=== PATIENT | male | born 2000 | race Caucasian/White ===

== ENCOUNTER 2018-12-12 00:47 | Inpatient (IN) | payer OTHER ==
[2018-12-12] VITALS (24 sets, daily range): BP systolic 90–152; BP diastolic 42–85
[~2018-12-12] VITALS: Ht 188 cm; Wt 85.5 kg
[2018-12-12] MEDS ORDERED: NS IV 1000 ML 1,000 ML IV STA (00:52)
[2018-12-12] MEDS ORDERED: ONDANSETRON 4 MG/2 ML (SDV) Z0FRAN IVP ONE (01:00)
[2018-12-12 01:01] LABS: BASOPHILS # (AUTO) 0.1 10^3/uL (0.0-0.1); BASOPHILS % (AUTO) 1 % (0-10); EOSINOPHILS # (AUTO) 0.1 10^3/uL (0.0-0.3); EOSINOPHILS % (AUTO) 1 % (0-10); HEMATOCRIT 44 % (40-54); HEMOGLOBIN 15.6 G/DL (13.3-17.7); LYMPHOCYTES # (AUTO) 3.6 X 10^3 (1.0-4.0); LYMPHOCYTES % (AUTO) 34 % (12-44); MEAN CORPUSCULAR HEMOGLOBIN 32 PG (25-34); MEAN CORPUSCULAR HGB CONC 36 G/DL (32-36); MEAN CORPUSCULAR VOLUME 90 FL (80-99); MEAN PLATELET VOLUME 9.8 FL (7.4-10.4); MONOCYTES # (AUTO) 0.7 X 10^3 (0.0-1.0); MONOCYTES % (AUTO) 6 % (0-12); NEUTROPHILS # (AUTO) 6.1 X 10^3 (1.8-7.8); NEUTROPHILS % (AUTO) 58 % (42-75); PLATELET COUNT 240 10^3/uL (130-400); RED BLOOD COUNT 4.84 10^6/uL (4.35-5.85); WHITE BLOOD COUNT 10.6 10^3/uL (4.3-11.0)
--- NOTE | 2018-12-12 01:12 | ED Psychosocial ---
General Chief Complaint: Substance Abuse Stated Complaint: ETOH Source: patient Exam Limitations: clinical condition, intoxication History of Present Illness Date Seen by Provider: Dec 12, 2018 Time Seen by Provider: 00:52 Initial Comments Here with friends who report that he drank approximately 2 L of vodka and rum trying to impress girl. At approximately 1145 p.m., patient started vomiting significantly and passed out. Friends tried to manage him for a little while and he get worse causing them to bring him to the emergency department. Here he is unresponsive and intermittently vomiting. He is not answering any questions. He does move all 4 extremities. He has abrasions to the left side of his face and small abrasion and bruising to the left ribs. No other significant injuries noted. Timing/Duration: this evening Severity: severe Associated Symptoms: ingestion Allergies and Home Medications Allergies Coded Allergies: No Allergy Information Available (Unverified , 12/12/18) Patient Home Medication List Home Medication List Reviewed: No Review of Systems Constitutional: no symptoms reported Unable to complete review of systems due to altered mental status Past Jevivkj-Mhdwdl-Pyjofe Hx Patient Social History Alcohol Use: Occasionally Uses Recent Foreign Travel: No Contact w/Someone Who Travel: No Past Medical History Unable to determine past medical, surgical and social history due to altered mental status and severe intoxication Physical Exam Capillary Refill : Height, Weight, BMI Height: '" Weight: lbs. oz. kg; BMI Method: General Appearance: WD/WN, mild distress HEENT: PERRL/EOMI, TMs normal, pharynx normal Neck: full range of motion, supple, normal inspection Respiratory: lungs clear, normal breath sounds Cardiovascular: regular rate, rhythm, no murmur Gastrointestinal: non tender, soft Extremities: normal range of motion, normal inspection Neurologic/Psychiatric: disoriented x 3, other (responsive to painful stimuli. Does not answer questions and does not follow commands) Appearance/Memory: disheveled, other (vomit on close) Behavior/Eye Contact: other (unresponsive) Skin: normal color, cool, other (abrasions to the left cheek and forehead. Small abrasion to the left upper lateral chest wall with bruising) Procedures/Interventions Date of ETT Placement: Dec 12, 2018 Time of ETT Placement: 01:34 Intubation Method: orotracheal Tube Size: 8 Medications: Etomidate, Fentanyl, Succinylcholine, Versed Positive End Tide CO2: Yes Breath Sounds after Intubation: bilateral-equal Intubation Complications: no complications Post Intubation Xray: Yes Progress/Results/Core Measures Results/Orders Lab Results Laboratory Tests Test 12/12/18 00:50 12/12/18 01:00 Range/Units White Blood Count 10.6 4.3-11.0 10^3/uL Red Blood Count 4.84 4.35-5.85 10^6/uL Hemoglobin 15.6 13.3-17.7 G/DL Hematocrit 44 40-54 % Mean Corpuscular Volume 90 80-99 FL Mean Corpuscular Hemoglobin 32 25-34 PG Mean Corpuscular Hemoglobin Concent 36 32-36 G/DL Red Cell Distribution Width 12.0 10.0-14.5 % Platelet Count 240 130-400 10^3/uL Mean Platelet Volume 9.8 7.4-10.4 FL Neutrophils (%) (Auto) 58 42-75 % Lymphocytes (%) (Auto) 34 12-44 % Monocytes (%) (Auto) 6 0-12 % Eosinophils (%) (Auto) 1 0-10 % Basophils (%) (Auto) 1 0-10 % Neutrophils # (Auto) 6.1 1.8-7.8 X 10^3 Lymphocytes # (Auto) 3.6 1.0-4.0 X 10^3 Monocytes # (Auto) 0.7 0.0-1.0 X 10^3 Eosinophils # (Auto) 0.1 0.0-0.3 10^3/uL Basophils # (Auto) 0.1 0.0-0.1 10^3/uL Sodium Level 141 135-145 MMOL/L Potassium Level 3.5 L 3.6-5.0 MMOL/L Chloride Level 109 H 98-107 MMOL/L Carbon Dioxide Level 20 L 21-32 MMOL/L Anion Gap 12 5-14 MMOL/L Blood Urea Nitrogen 12 7-18 MG/DL Creatinine 0.85 0.60-1.30 MG/DL Estimat Glomerular Filtration Rate > 60 BUN/Creatinine Ratio 14 Glucose Level 121 H 70-105 MG/DL Calcium Level 8.8 8.5-10.1 MG/DL Corrected Calcium 8.5-10.1 MG/DL Magnesium Level 2.7 H 1.8-2.4 MG/DL Total Bilirubin 0.5 0.1-1.0 MG/DL Aspartate Amino Transf (AST/SGOT) 20 5-34 U/L Alanine Aminotransferase (ALT/SGPT) 16 0-55 U/L Alkaline Phosphatase 89 40-136 U/L Total Protein 7.6 6.4-8.2 GM/DL Albumin 4.7 H 3.2-4.5 GM/DL Salicylates Level < 5.0 L 5.0-20.0 MG/DL Acetaminophen Level < 10 L 10-30 UG/ML Serum Alcohol 343 *H <10 MG/DL Urine Opiates Screen NEGATIVE NEGATIVE Urine Oxycodone Screen NEGATIVE NEGATIVE Urine Methadone Screen NEGATIVE NEGATIVE Urine Propoxyphene Screen NEGATIVE NEGATIVE Urine Barbiturates Screen NEGATIVE NEGATIVE Ur Tricyclic Antidepressants Screen NEGATIVE NEGATIVE Urine Phencyclidine Screen NEGATIVE NEGATIVE Urine Amphetamines Screen NEGATIVE NEGATIVE Urine Methamphetamines Screen NEGATIVE NEGATIVE Urine Benzodiazepines Screen NEGATIVE NEGATIVE Urine Cocaine Screen NEGATIVE NEGATIVE Urine Cannabinoids Screen NEGATIVE NEGATIVE My Orders Orders - GRETCHEN URBINA MD Acetaminophen (12/12/18 00:52) Alcohol (12/12/18 00:52) Cbc With Automated Diff (12/12/18 00:52) Comprehensive Metabolic Panel (12/12/18 00:52) Drug Screen Stat (Urine) (12/12/18 00:52) Magnesium (12/12/18 00:52) Salicylate (12/12/18 00:52) Ct Head Wo (12/12/18 00:52) Ondansetron Injection (Zofran Injectio (12/12/18 01:00) Ns Iv 1000 Ml (Sodium Chloride 0.9%) (12/12/18 00:52) Saline Lock/Iv-Start (12/12/18 00:52) Ekg Tracing (12/12/18 00:52) Catheter(Urinary) Insert & Ass 03,15 (12/12/18 00:52) O2 (12/12/18 00:52) Monitor-Rhythm Ecg Trace Only (12/12/18 00:52) Chest 1 View, Ap/Pa Only (12/12/18 01:01) Arterial Blood Gas (12/12/18 01:12) Propofol Drip (Icu) (Diprivan Drip (Icu) (12/12/18 02:00) Sedation Communication Q48H (12/12/18 01:49) Progress Progress Note : Progress Note Seen and evaluated. IV 2, labs, UA, UDS, EKG, chest x-ray and CT head ordered. Normal saline 1 L bolus and Zofran 8 mg IV. Monitor patient. Patient intermittently moving about the bed and vomiting without protecting airway well. Noted to have O2 saturation declining to the mid 80s during vomiting episodes. Significant concerns for airway protection and patient is toxic overdose of alcohol with EtOH@343. Decision to protect airway via intubation. Also allows for further evaluation of head given abrasions and reported falls as well as findings consistent with falls. Intubated times one attempt without difficulty and 0134. Placed on ventilator. To CT scan. Patient does have Urbano placed as well as NG tube placed. Anticipate ICU admission. Monitor patient. 0230: CT complete. No acute findings. Chest x- ray negative. Patient seems to be suffering from significant alcohol toxicity. Admit, inpatient status to the ICU. Discussed with Dr. Webb who agrees with the plan and accepts patient for admission. Vent settings continue. Initial ECG Impression Date: Dec 12, 2018 Initial ECG Impression Time: 01:14 Initial ECG Rate: 74 Initial ECG Rhythm: Normal Sinus Comment Sinus rhythm with normal axis. No evidence of ST elevation TN. No previous elbow for comparison. Nonspecific intraventricular conduction delay noted. Interpreted by me. Diagnostic Imaging Diagonstic Imaging: Xray Plain Films/CT/US/NM/MRI: chest Comments Tubes in good position. No other acute findings in the chest, single view x- ray. Reviewed: Reviewed by Me Diagonstic Imaging: CT Plain Films/CT/US/NM/MRI: head Comments No acute findings Reviewed: Reviewed Night [facility] Study Departure Communication (Admissions) Time/Spoke to Admitting Phy: 02:30 Impression Primary Impression: Alcohol poisoning Qualified Codes: T51.91XA - Toxic effect of unspecified alcohol, accidental ( unintentional), initial encounter Additional Impression: Respiratory failure with hypoxia Qualified Codes: J96.01 - Acute respiratory failure with hypoxia Disposition: 09 ADMITTED INPATIENT Condition: Stable Admissions Decision to Admit Reason: Admit from ER (General) Decision to Admit/Date: Dec 12, 2018 Time/Decision to Admit Time: 02:30 Departure-Patient Inst. Patient Instructions: ALCOHOL AND SUBSTANCE ABUSE GRETCHEN URBINA MD Dec 12, 2018 01:12
[2018-12-12 01:21] LABS: ACETAMINOPHEN < 10 UG/ML (10-30); ALANINE AMINOTRANSFERASE 16 U/L (0-55); ALBUMIN 4.7 GM/DL (3.2-4.5); ALKALINE PHOSPHATASE 89 U/L (40-136); BILIRUBIN,TOTAL 0.5 MG/DL (0.1-1.0); BUN/CREATININE RATIO 14; CALCIUM 8.8 MG/DL (8.5-10.1); CARBON DIOXIDE 20 MMOL/L (21-32); CHLORIDE 109 MMOL/L (98-107); CREATININE SERUM 0.85 MG/DL (0.60-1.30); GFR ESTIMATED > 60; GLUCOSE 121 MG/DL (70-105); MAGNESIUM 2.7 MG/DL (1.8-2.4); POTASSIUM 3.5 MMOL/L (3.6-5.0); SALICYLATE < 5.0 MG/DL (5.0-20.0); SODIUM 141 MMOL/L (135-145); TOTAL PROTEIN 7.6 GM/DL (6.4-8.2)
[2018-12-12 01:23] LABS: AMPHETAMINE SCREEN, URINE NEGATIVE (NEGATIVE); BARBITURATE SCREEN URINE NEGATIVE (NEGATIVE); BENZODIAZEPINES SCREEN URINE NEGATIVE (NEGATIVE); CANNABINOID SCREEN, URINE NEGATIVE (NEGATIVE); COCAINE SCREEN URINE NEGATIVE (NEGATIVE); METHADONE STAT NEGATIVE (NEGATIVE); METHAMPHETAMINE SCREEN URINE S NEGATIVE (NEGATIVE); OPIATE SCREEN URINE NEGATIVE (NEGATIVE); OXYCODONE STAT NEGATIVE (NEGATIVE); PROPOXYPHENE STAT NEGATIVE (NEGATIVE); TRICYCLIC ANTIDEPRESSANTS SCRE NEGATIVE (NEGATIVE)
--- NOTE | 2018-12-12 01:29 | NUR ---
PT UNABLE TO PROTECT HIS OWN AIRWAY, PT UNRESPONSIVE TO NAME AND STIMULUS. DECISION MADE BY DR. URBINA TO INTUBATE THE PT. ROOM PREPPED FOR INTUBATION, RT STAFF DARIAN PRESENT.
--- NOTE | 2018-12-12 01:34 | NUR ---
DECISION MADE TO INTUBATE THE PT. DR URBINA ORDERS 20MG OF ETOMIDATE AND 100MG OF SUCCCINYLCHOLINE, GIVEN IV PUSH. 0139- 5MG OF VERSED AND 100MCG OF FENTANYL GIVEN IV PUSH PER DR. URBINA. 0204- PT BEGINS TO SHOW S/S OF INCREASED RESTLESSNESS POST INTUBATION, 2.5MG OF VERSED GIVEN IV PER DR. URBINA VIA VERBAL ORDER.
--- NOTE | 2018-12-12 01:36 | NUR ---
PT SUCESSFULLY INTUBATED, 25 AT THE TEETH, END TIDAL C02 NOTED 43.
[2018-12-12] MEDS ORDERED: PROPOFOL DRIP (ICU) 100 ML IV SCH (02:00)
[2018-12-12 03:01] LABS: ABG BASE EXCESS -5.4 MMOL/L (-2.5-2.5); ABG OXYGEN SATURATION 100 % (94-100); ABG PCO2 50 MMHG (35-45); ABG PO2 158 MMHG (79-93); ABG TCO2 22.8 MMOL/L (21.0-31.0)
[2018-12-12 03:04] LABS: BILIRUBIN,URINE NEGATIVE (NEGATIVE); CLARITY,URINE CLEAR; COLOR,URINE YELLOW; GLUCOSE, URINE (UA) NEGATIVE (NEGATIVE); KETONES,URINE NEGATIVE (NEGATIVE); LEUKOCYTE ESTERASE ,URINE NEGATIVE (NEGATIVE); NITRITE,URINE NEGATIVE (NEGATIVE); PH,URINE 6 (5-9); PROTEIN,URINE 3+ (NEGATIVE); UROBILINOGEN,URINE NORMAL (NORMAL)
[2018-12-12 03:05] LABS: ABG PH 7.24 (7.37-7.43); ALLENS TEST YES-POS; INSPIRED O2 40%; VENTILATOR YES
[2018-12-12 03:06] LABS: PATIENT TEMP 95.9
[2018-12-12 03:11] LABS: BACTERIA,URINE NEGATIVE /HPF; SQUAMOUS EPITHELIAL CELL,UR RARE /HPF
[2018-12-12] MEDS ORDERED: fentaNYL INJECTION 100 MCG/2 ML AMP ONE (03:24)
[2018-12-12] MEDS ORDERED: 1/2 NS IV SOLUTION 1,000 ML IV ONE (03:42)
[2018-12-12 05:13] LABS: ABG OXYGEN SATURATION 98 % (94-100); ABG PCO2 36 MMHG (35-45); ABG PO2 92 MMHG (79-93); ABG TCO2 20.3 MMOL/L (21.0-31.0)
[2018-12-12 05:16] LABS: ABG PH 7.33 (7.37-7.43); ALLENS TEST YES-POS; INSPIRED O2 21%; VENTILATOR YES
[2018-12-12 05:17] LABS: PATIENT TEMP 95.6
--- NOTE | 2018-12-12 05:18 | Pulmonary Consultation ---
History of Present Illness History of Present Illness Date of Consultation 12/12/18 05:13 Time Seen by Provider: 05:13 Date of Admission History of Present Illness 18yo presented to ED intoxicated drank approx 2 liters of vodka and some rum to impress a girl. PT was vomiting and then became unresponsive and still vomiting. PT was intubated in ED for airway protection. He has abrasions to his left face and small abrasion and bruising to left ribs. Unable to obtain ROS secondary to pt being intubated and sedated on vent. I am consulted for ICU management. Allergies and Home Medications Allergies Coded Allergies: No Allergy Information Available (Unverified , 12/12/18) Past Rnywmwr-Znwtmw-Uzbdsg Hx Patient Social History Alcohol Use: Occasionally Uses Alcohol Beverage of Choice: Vodka Recreational Drug Use: No Smoking Status: Smoker Current Status [place] Recent Foreign Travel: No Contact w/Someone Who Travel: No Recent Infectious Disease Expo: No Recent Hopitalizations: No Past Medical History Surgeries: No Respiratory: No Cardiac: No Neurological: No Genitourinary: No Gastrointestinal: No Musculoskeletal: No Endocrine: No HEENT: No Cancer: No Psychosocial: No Integumentary: No Review of Systems Time Seen by Provider: 05:32 Sepsis Event Evaluation Height, Weight, BMI Height: 6'2.00" Weight: 188lbs. 9.0oz. 85.303698uf; 24.2 BMI Method:Estimated Exam Exam Vital Signs Date Time Temp Pulse Resp B/P (MAP) Pulse Ox O2 Delivery O2 Flow Rate FiO2 12/12/18 04:16 78 94 21 12/12/18 04:00 73 17 90/42 (58) 95 Mechanical Ventilator 21.00 12/12/18 03:45 78 14 92/44 (60) 93 Mechanical Ventilator 21.00 12/12/18 03:35 76 18 93 21 12/12/18 03:30 85 14 137/77 (97) 98 Mechanical Ventilator 21.00 12/12/18 03:18 100 12/12/18 03:16 95.5 78 14 137/77 (97) 94 Mechanical Ventilator 21.00 12/12/18 02:10 113 14 99 40 12/12/18 01:45 74 14 100 21 12/12/18 00:48 98 Room Air 10.00 12/12/18 00:47 94.0 68 20 138/95 (346) 58 OxyMask Height & Weight Height: 6'2.00" Weight: 188lbs. 9.0oz. 85.896919vd; 24.2 BMI Method:Estimated General Appearance: Thin, Other (sedated on vent ) HEENT: PERRL/EOMI, TMs Normal, Pharynx Normal Neck: Full Range of Motion, Normal Inspection Respiratory: Chest Non Tender, Lungs Clear, Normal Breath Sounds, No Accessory Muscle Use, No Respiratory Distress Cardiovascular: Regular Rate, Rhythm, No Edema Capillary Refill: Less Than 3 Seconds Gastrointestinal: normal bowel sounds, soft Extremity: Normal Capillary Refill, Normal Inspection Results Lab Laboratory Tests 12/12/18 00:50 Assessment/Plan Assessment/Plan Acute respiratory failure -Continue ventilator support -OG tube Alcohol intoxication -Will leave intubated today Dehydration -Change IVF to NS at 150 Metabolic acidosis -IVF -Check lactic acid Hypokalemia -replace Check mag and PIPPA Hernández DO Dec 12, 2018 05:18
[2018-12-12] MEDS ORDERED: NS IV 1000 ML 1,000 ML IV SCH (05:30)
[2018-12-12] MEDS ORDERED: POTASSIUM CL 10MEQ/50ML IVPB 100 ML IV ONE (05:37)
[2018-12-12] MEDS ORDERED: NS IV 1000 ML 2,000 ML ONE (05:37)
[2018-12-12] MEDS: PROPOFOL DRIP (ICU) 100 ML IV SCH ×2 (05:39→07:32)
[2018-12-12] MEDS: POTASSIUM CL 10MEQ/50ML IVPB 50 ML IV SCH ×3 (05:43→06:57)
[2018-12-12] MEDS: MAGNESIUM 1 GM/100 ML IVPB 100 ML IV SCH (05:44)
[2018-12-12] MEDS: KCL 20 MEQ TAB (K-DUR) PO SCH (05:44)
[2018-12-12] MEDS ORDERED: fentaNYL INJECTION 100 MCG/2 ML AMP IV PRN (05:45)
[2018-12-12] MEDS: 1/2 NS IV SOLUTION 1,000 ML IV SCH ×3 (05:48→22:46)
[2018-12-12 06:43] LABS: MAGNESIUM 2.1 MG/DL (1.8-2.4); PHOSPHORUS 3.4 MG/DL (2.3-4.7)
--- NOTE | 2018-12-12 07:11 | Diagnostic Imaging Report ---
PROCEDURE: CT head without contrast. TECHNIQUE: Multiple contiguous axial images were obtained through the brain without the use of intravenous contrast. INDICATION: Altered mental status, EtOH. COMPARISON: None. DISCUSSION: No intracranial hemorrhage, mass, midline shift, or hydrocephalus. The ventricles and sulci are normal size and configuration for age. The visualized orbits, paranasal sinuses, mastoid air cells, and calvarium are unremarkable. IMPRESSION: 1. Negative head CT. 2. Agree with preliminary report. Dictated by: Dictated on workstation # [id number]
--- NOTE | 2018-12-12 07:39 | Diagnostic Imaging Report ---
Indication: Dyspnea, line placement. Comparison: None. Discussion: Single portable supine of the chest was obtained. Endotracheal tube in good position within the midtrachea. Enteric tube in good position with tip in the gastric body. Normal heart size. No focal consolidation, pleural fluid, or pneumothorax. No osseous abnormality. Impression: 1. Endotracheal tube in good position. Dictated by: Dictated on workstation # [id number]
[2018-12-12] MEDS: NS IV 1000 ML 1,000 ML IV SCH ×3 (08:04→22:46)
[2018-12-12] MEDS: ONDANSETRON 4 MG/2 ML (SDV) Z0FRAN IVP PRN ×4 (08:21→20:29)
--- NOTE | 2018-12-12 08:32 | History & Physical-Hospitalist ---
History of Present Illness HPI/Chief Complaint Pt is a 18yoCM who presented to the ER due to alcohol intoxication. He is intubated and sedated at this time and unable to provide any history. All history is obtained from the records. Reportedly he drank 2L of alcohol. He began vomiting and his mentation decreased. His friends were unable to manage him any longer so they brought him to the ER for evaluation. He continued to vomit and he was unresponsive so decision was made to intubate for airway protection. He was admitted to the ICU for vent management. Source: patient Date Seen 12/12/18 Time Seen by a Provider: 08:27 Attending Physician Stephenie Webb MD PCP No,Local Physician Referring Physician Date of Admission Dec 12, 2018 at 02:30 Home Medications & Allergies Home Medications Reviewed patient Home Medication Reconciliation performed by pharmacy medication reconciliations recreational therapy technician and/or nursing. Patients Allergies have been reviewed. Allergies Allergies Coded Allergies No Allergy Information Available (Unverified12/12/18) Past Ufbvqjw-Couznf-Ifkltz Hx Past Med/Social Hx: Reviewed Nursing Past Med/Soc Hx Patient Social History Marrital Status: single Employed/Student: student, full-time Alcohol Use: Occasionally Uses Alcohol Beverage of Choice: Vodka Recreational Drug Use: No Smoking Status: Smoker Current Status [facility] Recent Foreign Travel: No Contact w/other who traveled: No Recent Hopitalizations: No Recent Infectious Disease Expo: No Family History Reviewed Nursing Family Hx No Pertinent Family Hx Review of Systems ROS-Unable to Obtain: Due to intubation Constitutional: see HPI Physical Exam Physical Exam Vital Signs Vital Signs - First Documented 12/12/18 12/12/18 12/12/18 00:47 00:48 01:45 Temp 94.0 Pulse 68 Resp 20 B/P (MAP) 138/95 (109) Pulse Ox 98 O2 Delivery OxyMask O2 Flow Rate 10.00 FiO2 21 Capillary Refill : Less Than 3 Seconds Height, Weight, BMI Height: 6'2.00" Weight: 188lbs. 9.0oz. 85.440584bw; 24.2 BMI Method:Estimated General Appearance: WD/WN, Other (intubated and sedated) HEENT: PERRL/EOMI, Moist Mucous Membranes; No Scleral Icterus (L), No Scleral Icterus (R) Neck: Non Tender, Supple Respiratory: Lungs Clear, Other (on vent) Cardiovascular: Regular Rate, Rhythm, No Murmur Gastrointestinal: Normal Bowel Sounds, Non Tender, Soft Extremity: Normal Capillary Refill, No Calf Tenderness Neurologic/Psychiatric: Alert, Other (easily arousable to verbal stimuli) Skin: Normal Color, Warm/Dry Results Results/Procedures Labs Laboratory Tests 12/12/18 00:50 Patient resulted labs reviewed. Imaging: Reviewed Imaging Report Assessment/Plan Admission Diagnosis Alcohol intoxication with acute respiratory failure Admission Status: Inpatient Order (span 2 midnights) Reason for Inpatient Admission: On ventilator Diagnosis/Problems Diagnosis/Problems (1) Alcohol poisoning Status: Acute Assessment & Plan: Alcohol 343 on arrival [facility] protocol UDS otherwise negative Qualifiers: Encounter type: initial encounter Injury intent: accidental or unintentional Qualified Codes: T51.91XA - Toxic effect of unspecified alcohol , accidental (unintentional), initial encounter (2) Respiratory failure with hypoxia Status: Acute Assessment & Plan: Plan to extubate today Pulm consulted, appreciate recs Qualifiers: Chronicity: acute Qualified Codes: J96.01 - Acute respiratory failure with hypoxia Clinical Quality Measures DVT/VTE Risk/Contraindication: RFS Level Per Nursing on Admit: 0=No Risk/No VTE PPX STEPHENIE WEBB MD Dec 12, 2018 08:32
--- NOTE | 2018-12-12 08:42 | NUR ---
0830 ASSISTED WITH EXTUBATION. PATIENT TOLERATED WELL. PATIENT IS ALERT AND ORIENTED. WILL CONTINUE TO MONITOR. FAMILY AT BEDSIDE
[2018-12-12] MEDS: FAMOTIDINE 20MG/2ML IV (PEPCID) IV SCH ×2 (10:12→20:29)
[2018-12-12] MEDS: CHLORHEXIDINE 0.12% SOLN 15 ML (PERIDEX) UDC PO SCH ×2 (10:13→20:30)
[2018-12-12] MEDS: ENOXAPARIN 40 MG/0.4 ML (LOVENOX) SYR SC SCH (10:13)
--- NOTE | 2018-12-12 11:56 | Physical Therapy Progress Note ---
Therapy Progress Note Patient received orders for a PT consult. Chart was reviewed. Therapist visited with ICU nursing. Patient has been extubated and is moving about his room without difficulty. Pt is not in need of PT evaluation at this time. LAURA KEBEDE PT Dec 12, 2018 11:56
[2018-12-12] MEDS ORDERED: MIDAZOLAM 5 MG/5 ML (VERSED) VIAL IJ ONE (12:37)
[2018-12-12] MEDS ORDERED: SUCCINYLCHOLINE INJ 100 MG/5 ML SYR INJ ONE (12:37)
[2018-12-12] MEDS ORDERED: fentaNYL INJECTION 100 MCG/2 ML AMP INJ ONE (12:37)
[2018-12-12] MEDS ORDERED: ETOMIDATE IV SOLN 20 MG/10 ML VIAL IV ONE (12:37)
--- NOTE | 2018-12-12 12:39 | Occ Therapy Progress Note ---
Therapy Progress Note 1237 Discussed pt with nursing. He has recovered to the point where he is moving around in his room by himself, taking himself to the bathroom, otherwise managing self care. No skilled OT indicated. HERSON OT. EDWARD YOUNG OT Dec 12, 2018 12:39
[2018-12-12] MEDS: IBUPROFEN 600 MG (MOTRIN) TAB PO PRN ×2 (14:30→20:30)
[2018-12-13] VITALS (10 sets, daily range): BP systolic 115–133; BP diastolic 59–90
[2018-12-13] MEDS: IBUPROFEN 600 MG (MOTRIN) TAB PO PRN ×2 (02:39→08:43)
[2018-12-13 03:54] LABS: BUN/CREATININE RATIO 13; CARBON DIOXIDE 21 MMOL/L (21-32); CHLORIDE 110 MMOL/L (98-107); CREATININE SERUM 0.79 MG/DL (0.60-1.30); GFR ESTIMATED > 60; GLUCOSE 91 MG/DL (70-105); PHOSPHORUS 3.6 MG/DL (2.3-4.7); POTASSIUM 3.7 MMOL/L (3.6-5.0); SODIUM 141 MMOL/L (135-145)
[2018-12-13] MEDS: 1/2 NS IV SOLUTION 1,000 ML IV SCH (04:39)
[2018-12-13] MEDS: POTASSIUM CL 10MEQ/50ML IVPB 50 ML IV SCH (04:41)
[2018-12-13] MEDS: MAGNESIUM 1 GM/100 ML IVPB 100 ML IV SCH (04:41)
[2018-12-13] MEDS: KCL 20 MEQ TAB (K-DUR) PO SCH (04:41)
[2018-12-13] MEDS: NS IV 1000 ML 1,000 ML IV SCH (05:15)
--- NOTE | 2018-12-13 05:21 | Pulmonary Progress Note ---
Subjective Time Seen by a Provider: 05:18 Subjective/Events-last exam Pt is doing well. No complications noted. His mom is at bedside. All questions were answered. Sepsis Event Evaluation Height, Weight, BMI Height: 6'2.00" Weight: 188lbs. 9.0oz. 85.792608aw; 24.2 BMI Method:Estimated Focused Exam Lactate Level 12/12/18 06:21: Lactic Acid Level 1.96 Exam Exam Vital Signs Date Time Temp Pulse Resp B/P (MAP) Pulse Ox O2 Delivery O2 Flow Rate FiO2 12/13/18 04:00 62 20 117/76 (90) 96 Nasal Cannula 2.00 12/13/18 03:00 58 15 115/68 (84) 96 Nasal Cannula 2.00 12/13/18 02:00 55 16 116/65 (82) 96 Nasal Cannula 2.00 12/13/18 01:00 66 16 118/60 (79) 96 Nasal Cannula 2.00 12/13/18 01:00 70 12/13/18 00:00 61 19 118/60 (79) 97 Nasal Cannula 2.00 12/12/18 21:00 92 15 132/79 (96) 95 Nasal Cannula 2.00 12/12/18 19:00 70 19 123/71 (88) 97 Nasal Cannula 2.00 12/12/18 19:00 88 12/12/18 18:00 98.6 12/12/18 17:00 90 10 152/80 (104) 96 Nasal Cannula 2.00 12/12/18 16:00 95 Room Air 12/12/18 16:00 83 10 142/70 (94) 95 Nasal Cannula 2.00 12/12/18 15:00 87 15 139/81 (100) 96 Nasal Cannula 2.00 12/12/18 14:00 98 12 127/72 (90) Nasal Cannula 2.00 12/12/18 13:06 91 12/12/18 13:00 93 22 124/59 (80) 98 Nasal Cannula 2.00 12/12/18 12:00 90 15 112/64 (80) 97 Nasal Cannula 2.00 12/12/18 12:00 98.9 12/12/18 12:00 95 Room Air 21.00 12/12/18 11:00 80 18 120/67 (84) 92 Nasal Cannula 2.00 12/12/18 10:00 93 12 121/69 (86) 100 Nasal Cannula 2.00 12/12/18 09:00 90 15 118/73 (88) 100 Nasal Cannula 2.00 12/12/18 08:08 85 20 97 21 12/12/18 08:00 97.2 12/12/18 08:00 79 17 112/66 (81) 97 Mechanical Ventilator 21.00 12/12/18 08:00 95 Mechanical Ventilator 21.00 12/12/18 07:32 130/85 12/12/18 07:13 76 12/12/18 07:00 68 17 99/49 (66) 96 Mechanical Ventilator 21.00 12/12/18 06:00 70 18 98/45 (62) 95 Mechanical Ventilator 21.00 12/12/18 05:39 95.5 68 18 99/53 97 Mechanical Ventilator 21.00 I & O 12/13/18 07:00 Intake Total 1350 ml Output Total 1950 ml Balance -600 ml Height & Weight Height: 6'2.00" Weight: 188lbs. 9.0oz. 85.635692bf; 24.2 BMI Method:Estimated General Appearance: No Apparent Distress, WD/WN HEENT: PERRL/EOMI, Pharynx Normal, Moist Mucous Membranes; No Scleral Icterus ( L), No Scleral Icterus (R) Neck: Full Range of Motion, Normal Inspection, Non Tender, Supple Respiratory: Lungs Clear, Normal Breath Sounds Cardiovascular: Regular Rate, Rhythm, No Murmur Capillary Refill: Less Than 3 Seconds Gastrointestinal: normal bowel sounds, soft Extremity: Normal Capillary Refill, No Calf Tenderness Neurologic/Psychiatric: Alert, Other (easily arousable to verbal stimuli) Skin: Normal Color, Warm/Dry Results Lab Laboratory Tests 12/12/18 00:50 12/13/18 03:22 Assessment/Plan Assessment/Plan Acute respiratory failure -PT is now off vent and doing well. No complications noted. -He is on RA s/p Alcohol intoxication Dehydration - improved Metabolic acidosis - resolved Pt is ok for discharge from pulmonary standpoint. PIPPA MART DO Dec 13, 2018 05:21
[2018-12-13] MEDS: ENOXAPARIN 40 MG/0.4 ML (LOVENOX) SYR SC SCH (08:12)
[2018-12-13] MEDS: CHLORHEXIDINE 0.12% SOLN 15 ML (PERIDEX) UDC PO SCH (08:12)
[2018-12-13] MEDS: FAMOTIDINE 20MG/2ML IV (PEPCID) IV SCH (08:13)
--- NOTE | 2018-12-13 08:38 | Discharge Inst-Simple/Standard ---
Discharge Inst-Standard Patient Instructions/Follow Up Plan of Care/Instructions/FU: Please avoid drinking alcohol in excess again. Please push fluids over the next few days and you ibuprofen or tylenol for head ache and muscle pain. Activity as Tolerated: Yes Discharge Diet: No Restrictions Return to The Hospital For: Confusion, shortness of breath, chest pain, if you feel you are getting worse. STEPHENIE STANLEY MD Dec 13, 2018 08:37
--- NOTE | 2018-12-13 08:41 | Discharge Summary-Hospitalist ---
Diagnosis/Chief Complaint Date of Admission Dec 12, 2018 at 02:30 Date of Discharge Discharge Date: Dec 13, 2018 Admission Diagnosis Alcohol intoxication with acute respiratory failure Discharge Diagnosis (1) Alcohol poisoning Status: Acute Assessment & Plan: Alcohol 343 on arrival [facility] protocol UDS otherwise negative (2) Respiratory failure with hypoxia Status: Acute Assessment & Plan: Plan to extubate today Pulm consulted, appreciate recs Discharge Summary Procedures/Consulations Dr Peres- Dean Discharge Physical Exam Allergies: Coded Allergies: No Allergy Information Available (Unverified , 12/12/18) Vitals & I&Os Vital Signs Date Time Temp Pulse Resp B/P (MAP) Pulse Ox O2 Delivery O2 Flow Rate FiO2 12/13/18 08:15 99 Room Air 12/13/18 08:00 98.6 77 18 126/78 (94) 12/13/18 06:00 2.00 12/12/18 08:08 21 General Appearance: No Apparent Distress, WD/WN Respiratory: Lungs Clear, No Respiratory Distress Cardiovascular: Regular Rate, Rhythm, No Murmur Neurologic/Psychiatric: Alert, Oriented x3 Hospital Course Pt was admitted to the ICU alcohol intoxication with respiratory failure. On arrival to the ER he was obtunded and vomiting was unable to be controlled with antiemetics. Due to the worry he would not be able to protect his airway he was intubated and admitted to the ICU. He quickly improved and extubated a few hours later. He was monitored overnight and did well. He was discharged home in stable condition. Patient's mom was at bedside to transport home. All questions were answered. He is to follow up with [facility] in the next week to follow up this hospital stay. Labs (last 24 hrs) Laboratory Tests 12/13/18 03:22: Sodium Level 141, Potassium Level 3.7, Chloride Level 110H, Carbon Dioxide Level 21, Anion Gap 10, Blood Urea Nitrogen 10, Creatinine 0.79, Estimat Glomerular Filtration Rate > 60, BUN/Creatinine Ratio 13, Glucose Level 91, Calcium Level 9.0, Phosphorus Level 3.6, Magnesium Level 2.0 Patient resulted labs reviewed. Pending Labs Laboratory Tests 12/13/18 03:22: Sodium Level 141, Potassium Level 3.7, Chloride Level 110, Carbon Dioxide Level 21, Anion Gap 10, Blood Urea Nitrogen 10, Creatinine 0.79, Estimat Glomerular Filtration Rate > 60, BUN/Creatinine Ratio 13, Glucose Level 91, Calcium Level 9.0, Phosphorus Level 3.6, Magnesium Level 2.0 Imaging: Reviewed Imaging Report Discussion & Recommendations Discharge Planning: >30 minutes discharge planning Discharge Home Medications: Active Scripts Active No Active Prescriptions or Reported Medications Instructions to patient/family Please see electronic discharge instructions given to patient. Clinical Quality Measures DVT/VTE Risk/Contraindication: RFS Level Per Nursing on Admit: 0=No Risk/No VTE PPX Copy Copies To 1: RODRIGO FONSECA MD Problem Qualifiers (1) Alcohol poisoning: Encounter type: initial encounter Injury intent: accidental or unintentional Qualified Codes: T51.91XA - Toxic effect of unspecified alcohol, accidental ( unintentional), initial encounter (2) Respiratory failure with hypoxia: Chronicity: acute Qualified Codes: J96.01 - Acute respiratory failure with hypoxia STEPHENIE STANLEY MD Dec 13, 2018 08:41
== END 2018-12-13 09:45 | disposition home or self-care (01) | DRG 917 ==
LOC: ER 00:52 → ICU 02:30
PROVIDERS: ADMIT Family Medicine; ATTEND Family Medicine
PROC: 5A1935Z Respiratory Ventilation, Less than 24 Consecutive Hours (ICD-10-PCS; principal; 2018-12-12)
DX: T51.0X1A Toxic effect of ethanol, accidental (unintentional), initial encounter (principal); Y90.8 Blood alcohol level of 240 mg/100 ml or more; F10.129 Alcohol abuse with intoxication, unspecified; J96.01 Acute respiratory failure with hypoxia; E87.2 Acidosis; E86.0 Dehydration; S00.81XA Abrasion of other part of head, initial encounter; S20.212A Contusion of left front wall of thorax, initial encounter; W19.XXXA Unspecified fall, initial encounter
CPT/HCPCS: 36415; 36600; 70450; 71045; 80048; 80053; 80306; 80320; 80329; 81000; 82805; 83605; 83735; 84100; 84478; 85025; 87081; 93005; 93041; 94002; 94799